=== PATIENT | female | born 1945 | race Caucasian/White ===

== ENCOUNTER → 2020-04-26 | Outpatient (CLI) | payer OTHER ==
[~2020-04-26] MED LIST: ASPI325 PO; DIPH50 PO; VITAMIN D32000 UNIT PO
== END | disposition home or self-care (01) ==
LOC: LAB SHORT 12:00 → LAB EV 12:00
DX: R35.1 Nocturia (principal)
CPT/HCPCS: 87086

== ENCOUNTER → 2021-07-23 | Outpatient (CLI) | payer OTHER | LOC: LAB 15:36 → LAB SHORT 15:36 | DX: D48.5 Neoplasm of uncertain behavior of skin (principal); L28.0 Lichen simplex chronicus; Z88.8 Allergy status to other drugs, medicaments and biological substances | CPT/HCPCS: 88305 ==

== ENCOUNTER 2022-04-02 07:48 | Day surgery (SDC) | payer OTHER ==
[~2022-04-02] VITALS: Ht 154.9 cm; Wt 72.0 kg
[2022-04-02] MEDS ORDERED: METO50ER (08:48)
[2022-04-02] MEDS ORDERED: XARELTO20 MG PO (08:48)
== END 2022-04-02 09:50 | disposition home or self-care (01) ==
LOC: ORSCSDS 07:48
PROVIDERS: Ophthalmology
PROC: 08RJ3JZ Replacement of Right Lens with Synthetic Substitute, Percutaneous Approach (ICD-10-PCS; principal; 2022-04-02 09:00)
DX: H25.11 Age-related nuclear cataract, right eye (principal); I48.91 Unspecified atrial fibrillation; I10 Essential (primary) hypertension; F41.9 Anxiety disorder, unspecified; Z79.01 Long term (current) use of anticoagulants; Z79.899 Other long term (current) drug therapy
CPT/HCPCS: J2001; J2250; J3010; J3301; J7040; V2632

== ENCOUNTER 2022-05-14 08:36 | Day surgery (SDC) | payer OTHER ==
[~2022-05-14] VITALS: Ht 154.9 cm; Wt 70.1 kg
[~2022-05-14 08:36] MED LIST changes: +METO50ER; +XARELTO20 MG PO
[2022-05-14] MEDS ORDERED: ADALAT CC30 M1 PO (09:10)
== END 2022-05-14 10:42 | disposition home or self-care (01) ==
LOC: ORSCSDS 08:36
PROVIDERS: Ophthalmology
PROC: 08RK3JZ Replacement of Left Lens with Synthetic Substitute, Percutaneous Approach (ICD-10-PCS; principal; 2022-05-14 10:00)
DX: H25.12 Age-related nuclear cataract, left eye (principal); Z96.1 Presence of intraocular lens; I10 Essential (primary) hypertension; I48.91 Unspecified atrial fibrillation; Z79.01 Long term (current) use of anticoagulants; Z79.899 Other long term (current) drug therapy
CPT/HCPCS: A9270; J2001; J2250; J3010; J3301; V2632